=== PATIENT | male | born 1955 ===

== ENCOUNTER 2025-07-23 22:21 | Emergency (ER) | payer MEDICARE, OTHER, SELFPAY ==
--- NOTE | 2025-07-23 22:32 | DI.RAD.S_ITS ---
PROCEDURE: XR CHEST 1V INDICATIONS: Chest Pain TECHNIQUE: One view of the chest was acquired. COMPARISON: None. FINDINGS: Surgical changes and devices: None. Lungs and pleura: Lungs are clear. No pleural effusions or pneumothorax. Mediastinum: Mediastinal contours appear normal. Heart size is normal. Bones and chest wall: No suspicious bony lesions. Overlying soft tissues appear unremarkable. IMPRESSION: No acute cardiopulmonary abnormality is seen. Dictated by: Dg Holden M.D. on 07/23/2025 at 22:58 Approved by: Dg Holden M.D. on 07/23/2025 at 22:58
--- NOTE | 2025-07-23 22:32 | EKG_ITS ---
[address] [address] Test Date: 2025-07-23 Pat Name: Sandoval Yancey Department: Room: Gender: Male Pay Agent: ANA MARIA : 1955 Requested By: Order Number: [id number] Reading MD: Humberto Pereyra Measurements Intervals [place] Rate: 61 P: VT: 234 QRS: 182 QRSD: 106 T: 162 QT: 440 QTc: 442 Interpretive Statements Sinus rhythm with 1st degree AV block Right superior axis deviation Incomplete right bundle branch block ST & T wave abnormality, consider inferior ischemia Electronically Signed On 07-24-2025 8:20:05 PDT by Humberto Pereyra
[2025-07-23 22:33] VITALS: BP 138/70; PULSE 57; RESP 13; TEMP 36.8; O2SAT 97; BMI 22.9
[2025-07-23 22:38] VITALS: PULSE 57; RESP 17; O2SAT 96
[2025-07-23 22:39] VITALS: BP 116/66; PULSE 56; RESP 14; O2SAT 96
[2025-07-23 22:51] LABS: Add Manual Diff / Slide Review NO; Hematocrit 41.8 % (41-53); Hemoglobin 14.7 g/dL (13.5-17.5); Lymphocytes Absolute Auto 1900 /uL (1100-4500); Mean Corpuscular HGB Conc 35.2 % (30-36); Mean Corpuscular Hemoglobin 33.0 PG (26-34); Mean Corpuscular Volume 93.9 fL (80-100); Platelet Count 118 X10^3/uL (150-400)
[2025-07-23 22:56] LABS: INR 1.0 (0.9-1.3); Prothrombin Time 11.8 SECONDS (9.4-12.5)
[2025-07-23 22:59] LABS: PTT Partial Thromboplastin Tim 27 SECONDS (25.1-36.5)
[2025-07-23 23:00] VITALS: BP 110/62; PULSE 53; RESP 14; O2SAT 95
[2025-07-23 23:01] LABS: Alanine Aminotransferase 18 IU/L (<50); Albumin 4.3 g/dL (3.5-5.0); Albumin Globulin Ratio 1.7 (1.0-2.8); Alkaline Phosphatase 76 U/L (38-126); Blood Urea Nitrogen 33 mg/dL (9-20); Calcium 9.4 mg/dL (8.4-10.2); Carbon Dioxide 22 mmol/L (22-32); Chloride 104 mmol/L (98-107); Creatine Kinase 246 U/L (55-170); Estimated Glomerular Filt Rate > 60 mL/min (>60); Globulin 2.6 g/dL (1.7-4.1); Glucose 107 mg/dL (70-99); HEMOLYSIS 32 (0-50); Lipase 285 U/L (23-300); Magnesium 1.8 mg/dL (1.6-2.3); Potassium 3.9 mmol/L (3.4-5.1); Sodium 135 mmol/L (137-145); Total Protein 6.9 g/dL (6.3-8.2)
[2025-07-23 23:12] LABS: NT-proBNP (BNP-Adult 18+) 239 pg/mL (<125); Troponin I 0.026 ng/mL (0.01-0.034)
[2025-07-23 23:30] VITALS: BP 109/74; PULSE 50; RESP 24; O2SAT 95
--- NOTE | 2025-07-23 23:49 | ED_ITS ---
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 No injury, trauma, new activities. Patient did go running earlier today, regularly goes running, had no problems with his usual running regimen. No recent cough or fevers or chills. No history of known coronary artery disease. Denies cardiac risk factors of diabetes, hypertension, hyperlipidemia, never smoked, no family history of coronary artery disease. No history of blood clots to legs or lungs, no leg pain or swelling symptoms. Related Data Allergies Allergy/AdvReac Type Severity Reaction Status Date / Time No Known Drug Allergies Allergy Verified 07/23/25 22:33 Patient History Social History Smoking Status: Never smoker Smoking Status: Never smoker Exam Narrative Exam Narrative: GENERAL: Well-developed patient, in mild distress. HEAD: Atraumatic. Normocephalic. EYES: Pupils equal round and reactive. Extraocular motions intact. No scleral icterus. No injection or drainage. ENT: Nose without bleeding, purulent drainage. Throat without erythema, tonsillar hypertrophy or exudate. Airway patent. NECK: Trachea midline. Non tender CARDIOVASCULAR: Regular rate and rhythm without murmurs, gallops, or rubs. RESPIRATORY: Clear to auscultation. Breath sounds equal bilaterally. No wheezes, rales, or rhonchi. No chest wall tenderness. No skin rash/vesicles changes. GASTROINTESTINAL: Abdomen soft, non-tender, nondistended. EXTREMITIES: No edema or joint tenderness. BACK: Nontender without deformity or crepitance. No flank tenderness. NEURO: AOx3. Motor functions grossly nonfocal. SKIN: No rash or erythema of visible areas Initial Vital Signs Initial Vital Signs: Vital Signs Temperature 98.3 F 07/23/25 22:33 Pulse Rate 57 L 07/23/25 22:33 Respiratory Rate 13 07/23/25 22:33 Blood Pressure 138/70 07/23/25 22:33 Pulse Oximetry 97 07/23/25 22:33 Oxygen Delivery Method Room Air 07/23/25 22:33 Scores HEART Score Heart Score history: Slightly Suspicious Heart Score EKG: Normal Heart Score Age: > or = 65 years old Heart Score risk factors: No known risk factors Heart Score troponin: < or = to normal limit Heart Score Total: 2 Course Orders Ordered: ED Orders 07/23/25 22:30 Complete Blood Count AUTO DIFF Stat Comprehensive Metabolic Panel Stat Lipase Stat Magnesium Stat NT-proBNP (BNP-Adult 18+) Stat PTT Partial Thromboplastin James Stat Prothrombin Time INR Stat Troponin & CK Cardiac Panel Stat 07/23/25 22:32 XR chest 1V Stat EKG-12 Lead Stat 07/24/25 00:18 D Dimer Stat 07/24/25 00:24 Trop I [Troponin I] Stat Discontinued Medications Aspirin (Aspirin 81 Mg Chew Tab) 324 mg PO NOW ONE Stop: 07/23/25 22:33 Aspirin (Aspirin 81 Mg Chew Tab) 324 mg PO NOW ONE Stop: 07/24/25 00:19 Last Admin: 07/24/25 00:27 Dose: 324 mg Documented By: LISA Vital Signs Vital signs: Vital Signs - 8 hr 07/23/25 22:33 07/23/25 22:38 07/23/25 22:39 Temperature 98.3 F Pulse Rate 57 L 57 L 56 L Respiratory Rate 13 17 14 Blood Pressure 138/70 Pulse Oximetry 97 96 96 Oxygen Delivery Method Room Air Room Air Room Air 07/23/25 22:39 07/23/25 23:00 07/23/25 23:00 Temperature Pulse Rate 53 L Respiratory Rate 14 Blood Pressure 116/66 110/62 Pulse Oximetry 95 Oxygen Delivery Method Room Air 07/23/25 23:30 07/23/25 23:30 07/24/25 00:00 Temperature Pulse Rate 50 L Respiratory Rate 24 Blood Pressure 109/74 112/64 Pulse Oximetry 95 Oxygen Delivery Method Room Air 07/24/25 00:00 07/24/25 00:30 07/24/25 00:30 Temperature Pulse Rate 48 L 48 L Respiratory Rate 21 13 Blood Pressure 112/65 Pulse Oximetry 99 97 Oxygen Delivery Method Room Air Room Air 07/24/25 01:00 07/24/25 01:01 07/24/25 01:01 Temperature Pulse Rate 46 L 46 L Respiratory Rate 20 22 Blood Pressure 122/86 Pulse Oximetry 98 98 Oxygen Delivery Method Room Air Room Air MDM - Chest Pain Lab Data Attestation: I reviewed the patient's lab results. Lab results narrative: White blood cell count 8400, hemoglobin 14.5, platelets adequate. Glucose 107. BUN 33 with creatinine 1.17, normal serum CO2 and potassium. Sodium 135 slight decreased. Liver functions and lipase normal. Troponin measurable but low value. BNP not elevated. 07/23/25 22:30 07/23/25 22:30 Labs: Lab Results 07/23/25 07/24/25 Range/Units 22:30 00:24 WBC 8.4 (4.5-11.0) X10^3/uL RBC 4.45 L (4.5-5.9) X10^6/uL Hgb 14.7 (13.5-17.5) g/dL Hct 41.8 (41-53) % MCV 93.9 (80-100) fL MCH 33.0 (26-34) PG MCHC 35.2 (30-36) % RDW 12.4 (11.6-14.8) % Plt Count 118 L (150-400) X10^3/uL Neut % (Auto) 65.6 (50-75) % Lymph % (Auto) 22.7 L (25-40) % [place] % (Auto) 8.7 (3-14) % Eos % (Auto) 2.6 (2-4) % Baso % (Auto) 0.4 (0-2) % Neut # (Auto) 5500 (6082-0429) /uL Lymph # (Auto) 1900 (3443-7152) /uL [place] # (Auto) 700 (0-900) /uL Eos # (Auto) 200 (0-450) /uL Baso # (Auto) 0 (0-100) /uL PT 11.8 (9.4-12.5) SECONDS INR 1.0 (0.9-1.3) APTT 27 (25.1-36.5) SECONDS D-Dimer 259 (<500) ng/ml Sodium 135 L (137-145) mmol/L Potassium 3.9 (3.4-5.1) mmol/L Chloride 104 (98-107) mmol/L Carbon Dioxide 22 (22-32) mmol/L BUN 33 H (9-20) mg/dL Creatinine 1.17 (0.66-1.25) mg/dL Estimated GFR > 60 (>60) mL/min BUN/Creatinine Ratio 28.2 H (6-22) Glucose 107 H (70-99) mg/dL Calcium 9.4 (8.4-10.2) mg/dL Magnesium 1.8 (1.6-2.3) mg/dL Total Bilirubin 1.3 (0.2-1.3) mg/dL AST 33 (17-59) IU/L ALT 18 (<50) IU/L Alkaline Phosphatase 76 (38-126) U/L Total Creatine Kinase 246 H (55-170) U/L Troponin I 0.026 0.028 (0.01-0.034) ng/mL NT-Pro-B Natriuret Pep 239 H (<125) pg/mL Total Protein 6.9 (6.3-8.2) g/dL Albumin 4.3 (3.5-5.0) g/dL Globulin 2.6 (1.7-4.1) g/dL Albumin/Globulin Ratio 1.7 (1.0-2.8) Lipase 285 (23-300) U/L Imaging Data Chest x-ray: Radiologist's Impression: [place] [address] XRay Report Signed Patient: Sandoval Yancey MR#: [id number] : 1955 Acct:[id number] Age/Sex: 69 / M Date of Service: 07/23/25 Loc: ED Accession Number: [id number] Procedure: XR chest 1V Ordering Provider: Wayne Amaya MD PROCEDURE: XR CHEST 1V INDICATIONS: Chest Pain TECHNIQUE: One view of the chest was acquired. COMPARISON: None. FINDINGS: Surgical changes and devices: None. Lungs and pleura: Lungs are clear. No pleural effusions or pneumothorax. Mediastinum: Mediastinal contours appear normal. Heart size is normal. Bones and chest wall: No suspicious bony lesions. Overlying soft tissues appear unremarkable. IMPRESSION: No acute cardiopulmonary abnormality is seen. Dictated by: Dg Holden M.D. on 07/23/2025 at 22:58 Approved by: Dg Holden M.D. on 07/23/2025 at 22:58 ECG Data Attestation: I personally reviewed and interpreted this ECG as follows: Interpretation: 2235, sinus rhythm with first-degree AV block, ventricular rate 61. No obvious ST segment elevation or depression changes. T-wave inversion lead to but not in other contiguous inferior leads 3 and F. similar appearance to patient provided comparison dated 04/28/2024. [facility] Narrative Medical decision making narrative: 69-year-old male with your regular heart rate and rhythm sensation 4:45 p.m.. Left lateral chest discomfort 9:00 p.m., decreasing without specific treatment. No history of VTE/PE, denies leg pain or swelling symptoms. Denies known CAD, no cardiac risk factors. Heart score 2, due to age. Oral aspirin given. EKG shows sinus bradycardia, without obvious ischemic changes. No change from provided comparison April 2024. Chest x-ray without acute changes. See radiology report. Initial lab data: White blood cell count 8400, hemoglobin 14.5, platelets adequate. Glucose 107. BUN 33 with creatinine 1.17, normal serum CO2 and potassium. Sodium 135 slight decreased. Liver functions and lipase normal. Troponin measurable but low value. BNP not elevated. D-dimer added, was not elevated. Repeat troponin slight higher but very low value, not clinically significant. Further testing as an outpatient for now. Patient advised to follow up with his [facility] pediatric care coordinator, local cardiology contact information given for office of Dr. Montague if needed. Consider also ambulatory cardiac monitoring, to evaluate for ectopy/dysrhythmia. Consider use of oral baby aspirin daily until further workup completed. Return precautions discussed. Discharge Plan Departure Patient Disposition: Home Clinical Impression: Chest pain, Heart palpitations Activity Restrictions/Additional Instructions: Irregular heartbeat sensation, and transient left sided chest discomfort of unclear cause. No identified cardiac risk factors, and no known coronary artery disease. EKG and serial blood tests not suggestive of heart attack at this time. D-dimer screening blood tests not elevated, as might be expected with abnormal clotting such as blood clots to the legs or lungs. Chest x-ray without pneumonia or heart failure fluid overload or acute changes. Low risk stratification, further cardiac evaluation as an outpatient for now. Consider taking aspirin once daily. You also had some irregular heartbeat sensation, while on monitor in the emergency department no ectopy noted, sinus bradycardia noted but you have this known in the past, and run regularly, likely have normal resting low heart rate. Consider ambulatory cardiac monitoring. Consider further cardiac evaluation such as stress testing with your [facility] pediatric care coordinator. Contact your [place] pediatric care coordinator later today during regular hours to coordinate further follow up. Contact information for local pediatric care coordinator Dr. Rubio given, if you are unable to make arrangements in the area of your [facility]. Return to this/nearest emergency department for any change worsening symptoms or any concerns prior to your cardiology follow up evaluations. Referrals: Fritz Montague MD [Physician, Cardiology] Sesar Gunter MD [Primary Care Provider, Internal Medicine] Stand Alone Forms: Patient Portal/API
[2025-07-24] VITALS: BP 112/64; PULSE 48; RESP 21; O2SAT 99
[2025-07-24] MEDS: ASPIRIN 81 MG CHEW TAB 324 MG PO (00:27)
[2025-07-24 00:30] VITALS: BP 112/65; PULSE 48; RESP 13; O2SAT 97
[2025-07-24 00:53] LABS: Troponin I 0.028 ng/mL (0.01-0.034)
[2025-07-24 01:00] VITALS: PULSE 46; RESP 20; O2SAT 98
[2025-07-24 01:01] VITALS: BP 122/86; PULSE 46; RESP 22; O2SAT 98
== END 2025-07-24 01:17 | disposition home or self-care (01) ==
PROVIDERS: Emergency Provider Emergency Medicine; PCP Internal Medicine
DX: R07.9 Chest pain, unspecified (principal); R00.2 Palpitations; R00.1 Bradycardia, unspecified
CPT/HCPCS: 36415; 71045; 80053; 82550; 83690; 83735; 83880; 84484; 85025; 85379; 85610; 85730; 93005; 99284